=== PATIENT | female | born 1960 | race Two or more races ===

== ENCOUNTER → 2025-07-02 | Day surgery (SDC) | payer OTHER ==
[2025-06-26 13:00] LABS: BASOPHILS % 0.4 % (0.0-1.0); EOSINOPHILS % 0.9 % (0.0-6.0); LYMPHOCYTES % 23.2 % (18.0-39.1); MONOCYTES % 7.8 % (4.4-11.3); NEUTROPHILS % 67.3 % (38.7-80.0); RED CELL DISTRIBUTION WIDTH 13.3 % (11.7-14.4)
[~2025-07-02] MED LIST: GLUCAGON FOR INJ 1 MG VIAL ONE; HYOSCYAMINE SULFATE 0.5 MG/ML INJ ONE; LIDOCAINE HCL 2% LOCAL INJ 5 ML SDV VIAL INJ ONE; PROPOFOL IV EMULSION 10 MG/ML 20 ML VIAL ONE
[2025-07-02] MEDS: LACTATED RINGER'S 1,000 ML ONE (06:12)
[2025-07-02 08:44] VITALS: TEMP 98
[2025-07-02 09:15] VITALS: BP 143/81; PULSE 88; RESP 16; O2SAT 99
== END | disposition home or self-care (01) ==
LOC: OR 05:35
PROVIDERS: ATTEND Internal Medicine Gastroenterology
DX: Z12.11 Encounter for screening for malignant neoplasm of colon (principal); D12.3 Benign neoplasm of transverse colon; K57.30 Diverticulosis of large intestine without perforation or abscess without bleeding; K62.89 Other specified diseases of anus and rectum; I10 Essential (primary) hypertension; I83.90 Asymptomatic varicose veins of unspecified lower extremity; Z01.810 Encounter for preprocedural cardiovascular examination; Z01.812 Encounter for preprocedural laboratory examination; Z91.81 History of falling
CPT/HCPCS: 36415; 45385; 85025; 88305; 93005; J1610; J1980; J2003; J2704; J7121; 45378